=== PATIENT | male | born 1975 | race Caucasian/White ===

== ENCOUNTER → 2020-06-28 13:46 | Outpatient (CLI) | payer OTHER, SELFPAY ==
--- NOTE | ~2020-06-28 | US_ITS ---
EXAMINATION: US soft tissue head and neck EXAM DATE: 06/28/2020 14:09 INDICATION: R59.0 - Localized enlarged lymph nodes. Eye infection on antibiotics. TECHNIQUE: Multiple grayscale and Doppler images of the symptomatic right neck region were obtained ( by a technologist who performed the scan) and subsequently reviewed. There is no prior study for clara joseph. FINDINGS: There are multiple enlarged lymph nodes along the right posterior cervical triangle, with to the larg er 1's measuring 1.8 x 0.8 x 1.3 cm and 1.2 x 0.7 x 1.5 cm. IMPRESSION: Right posterior cervical triangle lymphadenopathy, could be reactive given history provid ed. Lymphoma or other malignancy can have similar appearance by ultrasound. Follow-up to resolution. If lymphadenopathy persists then ENT consult is recommended. Reviewed, dictated and finalized at location B. [facility] [employer] IMPRESSION: Right posterior cervical triangle lymphadenopathy, could be reactiv e given history provided. Lymphoma or other malignancy can have similar appeara nce by ultrasound. Follow-up to resolution. If lymphadenopathy persists then EN T consult is recommended.
== END ==
PROVIDERS: PCP Family Medicine; Visit Provider Nurse Practitioner Family
DX: R59.0 Localized enlarged lymph nodes (principal)
CPT/HCPCS: 76536

== ENCOUNTER → 2020-07-22 02:48 | Outpatient (CLI) | payer OTHER, SELFPAY ==
[2020-07-22 19:42] LABS: SARS-CoV-2 RNA PCR Negative
== END ==
PROVIDERS: PCP Family Medicine; Visit Provider Otolaryngology
DX: Z01.812 Encounter for preprocedural laboratory examination (principal); Z20.822 Contact with and (suspected) exposure to COVID-19
CPT/HCPCS: C9803; U0003; U0005

== ENCOUNTER 2020-07-25 02:10 | Day surgery (SDC) | payer OTHER, SELFPAY ==
[2020-07-19 15:10] VITALS: BMI 22.1
--- NOTE | 2020-07-24 09:04 | PM.IMHP ---
H&P: HPI History of Present Illness Date/Time: 07/24/20 09:04 Chief Complaint: postauricular right lymphadenopathy, postauricular lesion right, neck mass right Narrative: Luis Alfredo Melvin is a 44 year old male who presents for planned surgical procedure. He reports no new symptoms or changes in his medical history. Review of Systems Constitutional: Constitutional: Denies fatigue, Denies fever(s) and Denies lethargy Eyes: Eyes: Denies blurry vision and Denies change in vision ENT: Reports as per HPI Cardiovascular: Cardiovascular: Denies chest pain Respiratory: Respiratory: Denies cough Endocrine: Endocrine: Denies fatigue Hematologic/Lymphatic: Hematologic/Lymphatic: Denies easy bleeding, Denies easy bruising and Denies lymphadenopathy Allergic/Immunologic: Allergic/Immunologic: Denies seasonal rhinorrhea [facility] Family History Family History Father Family history of diabetes mellitus in first degree relative Social History Social History Social History: Smoking status: Never smoker Second hand tobacco smoke exposure: No Alcohol intake: never Substance use: never Substance use type: does not use Gender identity (if verbalized by the patient): Male Spiritual care concerns: No Meds Home Medications and Allergies Home Medications Medication Instructions Recorded Confirmed Type No Home Medications 07/19/20 07/19/20 History Allergies Allergy/AdvReac Type Severity Reaction Status Date / Time No Known Allergies Allergy Verified 07/19/20 14:54 Exam Const: General: cooperative, healthy appearing, comfortable, well developed and alert HENMT: Head: normal to inspection, normocephalic and atraumatic Ears: hearing grossly normal bilaterally, external ears normal, TM's normal bilaterally and EAC's normal General nose exam: Normal external nose present, Normal nares present, No nasal polyps present, Normal nasal mucous membranes and turbinates present and Normal septum present Face and sinus: normal facial exam Mouth: Yes Normal oral and palatal mucosa present, Yes lip normal, Yes tongue normal, Yes oropharynx normal and Yes moist mucous membranes Teeth and gingiva: dentition normal and gingiva normal Throat: posterior oropharynx normal, tonsils normal and uvula midline Other: Right-sided jugulodigastric lymphadenopathy as well as right postauricular open lesion Eyes: General: appearance normal, both eyes and all related structures Periorbital: periorbital findings normal Eyelids: eyelids normal Conjunctivae: conjunctivae normal Sclera: sclerae normal Neck: Neck: not normal to visual inspection, full ROM and lymphadenopathy noted Thyroid: thyroid normal Lymphatic: no lymphadenopathy noted Resp: Effort & Inspection: normal respiratory effort and able to speak in complete sentences Cardio: Jugular venous distension: no JVD Neuro: Cranial nerves: Yes CN's II-XII intact bilaterally Assessment and Plan Assessment and plan (1) Abscess, postauricular: Code(s): L02.811 - Cutaneous abscess of head [any part, except face] Status: Acute Assessment and Plan: plan is for the operating room for excision of right postauricular lesion/ Right-sided neck mass. This lesion will be sent for fresh as well as permanent pathology. Will also send this for typical and atypical cultures. The risks were discussed in great detail with the patient including bleeding infection damage to surrounding structures the need for further procedures scalp numbness and failure to resolve symptoms. The patient voiced understanding and agreed. (2) Posterior auricular lymphadenopathy: Code(s): R59.0 - Localized enlarged lymph nodes Status: Acute (3) Postauricular lymphadenopathy: Code(s): R59.0 - Localized enlarged lymph nodes Status: Acute (4) Lymphadenopa
[2020-07-25] VITALS (8 sets, daily range): BP systolic 103–136; BP diastolic 68–85; PULSE 49–59; RESP 11–18; TEMP 36–36.6; O2SAT 98–100
--- NOTE | 2020-07-25 08:39 | WPDHPUPDATE1 ---
History and Physical Update Update Date/Time: 07/25/20 08:39 History and Physical has been reviewed, including an updated exam of the patient. There are NO changes in the patient's condition. Risks, benefits, and alternatives have been discussed and questions answered. Patient agrees to proceed with procedure.
[2020-07-25] MEDS: LACTATED RINGERS 1,000 ML 30 ML IV CONT (09:25)
--- NOTE | 2020-07-25 09:39 | P.PNAN_ITS ---
Anes - Initial Pre Proc Eval Procedure: Operation Date: 07/25/20 10:00 Proposed Procedures p Excision Right Neck Mass - Tien Medrano MD Date/Time: 07/25/20 09:39 Surgeon: Tien Medrano MD Pre Op Diagnosis: Right Neck Mass Patient Data Age: 44 Gender: M Height: 1.75 m Weight: 64 kg Allergies Allergy/AdvReac Type Severity Reaction Status Date / Time No Known Allergies Allergy Verified 07/25/20 09:36 Home Medications Medication Instructions Recorded Confirmed Type No Home Medications 07/19/20 07/25/20 History Laboratory Tests 07/25/20 07/25/20 09:02 09:02 B. henselae IgG Ttr Com Pending Bartonella henselae IgG Pending Bartonella henselae IgM Pending Bartonella camarena IgG Pending Bartonella camarena IgM Pending TB Test (QFT) Gold Plus Pending TB Test (QFT) Nil Pending TB Test Mitogen - Nil Pending TB Test Ag - Nil 1 Pending TB Test Ag - Nil 2 Pending Patient hx anesthesia problems: none Family hx anesthesia problems: none COUNTS INCLUDE 234 BEDS AT THE [facility] Past Medical History Medical History (Updated 07/25/20 @ 09:41 by Fransico Jett MD) Abscess, postauricular Gilbert syndrome Lymphadenopathy of head and neck Posterior auricular lymphadenopathy Family History Family History Father Family history of diabetes mellitus in first degree relative Social History Social History Social History: Smoking status: Never smoker Second hand tobacco smoke exposure: No Alcohol intake: never Substance use: never Substance use type: does not use Living arrangements: with family Gender identity (if verbalized by the patient): Male Spiritual care concerns: No Anes - Eval Final PreProcedure Day of Procedure 07/25/20 09:39 Patient weight: normal Heart: regular rate and rhythm Lungs: clear to auscultation and normal air movement Airway: Mallampati scale class II Neurological: alert and oriented Last oral intake: >/= 8 hours ASA classification: II Emergent: no Anesthetic plan: proceed Anesthesia type and monitoring: general ETT Informed Consent: The patient's anesthetic plan and its attendant risks and benefits were discussed with the patient/family/POA. Questions were solicited and answers provided to the satisfaction of the patient/family/POA.
[2020-07-25] MEDS: SCOPOLAMINE 1.5 MG PATCH TRANSDERM (09:45)
[2020-07-25] MEDS: ceFAZolin 2 GM/D5W 50 ML 2 GM/50 ML BAG IVPB (09:49)
[2020-07-25] MEDS: LIDO 1%/EPINEPHRINE 1:100,000 50 ML VIAL INFILTRATE (10:37)
--- NOTE | 2020-07-25 10:42 | PM.PROC ---
Procedure Note - Detailed Date of procedure: 07/25/20 Pre-op diagnosis: Right Neck Mass Post-op diagnosis: same Procedure performed: Excisional biopsy of right neck/post auricular mass Description of procedure: The patient was correctly identified and consent was verified in the preoperative holding area. The patient was then brought to the operating room and a time-out was performed. General anesthesia was induced and an endotracheal tube was secured the patient's airway excuse me and LMA was secured the patient's airway. The patient was then prepped and draped for the aforementioned procedures. 0.5 cc of 1% lidocaine with 1 100,000 parts epinephrine was injected just below the skin over the right postauricular mass. A 15 blade was utilized to dissect through the epidermis and dermis until the mass was visible. The mass was white pale and had the appearance of fish skin. The mass was dissected bluntly around it approximately 2 x 2 cm across and half spherical in shape. The mass was then dissected sent for multiple cultures as well as pathologic analysis both fresh and permanent. Hemostasis was achieved utilizing bipolar electrocautery at a setting of 10. The skin which was able to be sutured was closed in the deep layer with a 4 0 interrupted Vicryl epidermis was closed with a running 5 0 fast gut. The dressing was applied. Care of the patient was turned over to Anesthesiology. Blood loss was minimal. There were no immediate complications. I performed all dictated portions of the procedure. Anesthesia: GLMA Surgeon: Tien Medrano MD Pathology: yes Complications: No immediate complications Condition: stable Disposition: PACU
--- NOTE | 2020-07-25 11:12 | SUR.PHASEI ---
1111 dr polanco here and talked to pt.
[2020-07-27 22:53] LABS: NIL 0.01 IU/mL; Quantiferon TB Plus, 1T NEGATIVE (NEGATIVE)
[2020-07-30 19:43] LABS: Bartonella henselae IgG Positive; Bartonella henselae IgM Positive; Bartonella quintana IgG Negative; Bartonella quintana IgM Negative
== END 2020-07-25 12:30 | disposition home or self-care (01) ==
PROVIDERS: PCP Family Medicine; Visit Provider Otolaryngology
PROC: (CPT 21552; principal; 2020-07-25 10:00)
DX: I88.8 Other nonspecific lymphadenitis (principal); M79.89 Other specified soft tissue disorders; E80.4 Gilbert syndrome
CPT/HCPCS: 21552; 36415; 86480; 86611; 87015; 87070; 87075; 87102; 87107; 87116; 87205; 87206; 88108; 88304; 88305; 88312; A9270; C9803; J0690; J1100; J2250; J2270; J2405; J2704; J7120; U0003; U0005